=== PATIENT | female | born 1950 ===

== ENCOUNTER 2025-06-17 13:10 | Outpatient (AMB) | payer MEDICARE, MEDICAID, SELFPAY ==
--- NOTE | 2025-06-17 13:20 | MHC.OFFVIS ---
Vital Signs 06/17/25 13:23 Height 5 ft Weight 140 lb BMI 27.3 BP 143/67 H Blood Pressure Location Lt brachial Position Sitting Respiration 16 Pulse 75 Pulse Source Pulse Oximeter Pulse Oximetry (%) 97 Oxygen Delivery Method Room Air Intake Visit Reasons: Chronic Pain Dbas Required: No Accompanied by: Spouse Allergies ivp dye Adverse Reaction (Severe, Uncoded 06/17/25 13:24) Hives Medication List - Last Reconciled 06/17/25 by Kimberley Barkley LPN ascorbic acid (vitamin C) 1,000 mg PO BID atorvastatin (Lipitor) 20 mg PO BEDTIME cholecalciferol (vitamin D3) 25 mcg PO DAILY ferrous sulfate 325 mg PO DAILY morphine ER 15 mg PO Q8H oxycodone 10 mg PO TID HPI HPI Chronic Pain: Details: History of Present Illness The patient is a 74 year old female presenting for a pain management consultation regarding chronic pain. Her primary complaint is severe right hip pain, which began after a fall approximately one year ago. She underwent surgery for a hip fracture, but has experienced persistent pain for the entire year since, even though the hip has healed. The pain has reportedly worsened as the hip heals, which has been attributed to bone growth leading to a reduced range of motion. The patient is scheduled for another hip surgery, but is required to be off opioids for an unspecified period before the procedure can take place. She has a history of chronic opioid use (morphine) for pain, which she has now stopped, resulting in horrible pain and significantly decreased mobility. Her function has declined to the point of needing assistance with using the bathroom, and her ability to ambulate has been drastically reduced since discontinuing the medication. She reports feeling sick and weak after stopping the opioids. Her history is also significant for other chronic pain conditions, including chronic neck pain, spinal stenosis, and severe scoliosis with a visible arch in her back. She had a knee replacement about 20 years ago. The chronic opioid use predated her hip injury and was initially for her back pain. It is noted that the current hip issue may be exacerbating pain in her knee, ankle, back, and sacroiliac joint. Pain Description - Location: The patient's primary pain is in her right hip. - She also experiences generalized body pain, including chronic pain in her neck, back, knee, and ankle. - Onset: The right hip pain began after a fall about one year ago. - Quality and Severity: The pain is described as horrible and severe, rated at 10/10. - Exacerbating Factors: Pain is significantly worsened by the cessation of opioid medication and with activity such as walking. - Relieving Factors: Opioid medication helped her pain, providing some relief for all her pain areas. - Interference with Function: The pain severely limits her daily activities. - She now requires assistance to use the bathroom. - Her ambulation has drastically decreased; she can now only walk a short distance before needing to sit down, whereas previously she could walk much further. Physical Exam Results - Labs: A CMP test was mentioned, but no results were discussed. Pain Management: - Analgesia: The patient was on a stable dose of chronic opioids (morphine) for years, which provided partial relief. - She has stopped opioids in preparation for surgery and now reports horrible, severe pain. - Activities of Daily Living: Function is severely impaired due to pain. - She needs assistance with mobility and basic ADLs like using the bathroom. - Her ambulation has significantly declined since stopping her pain medication. - Adverse Effects: After stopping opioids, she reports feeling sick and weak. - Affect: The patient is significantly distressed by her severe, uncontrolled pain. - Aberrant Drug-Related Behaviors: There is no evidence of aberrant behavior. - She reports being on a stable dose for years without escalation, dislikes taking drugs, and denies craving them, stating she only craves relief from pain. COUNT INCLUDES THE [facility] Medical History (Updated 04/26/25 @ 14:17 by Kimberley Barkley LPN) Chronic thoracic back pain Chronic low back pain Hip pain Chronic UTI Urinary incontinence Amnesia Fibromyalgia CHF (congestive heart failure) Insomnia Anemia Hyperlipidemia Chronic pain syndrome Physical Exam Vital Signs: Last Vital Signs Pulse 75 06/17/25 13:23 Resp 16 06/17/25 13:23 BP 143/67 H 06/17/25 13:23 Pulse Ox 97 06/17/25 13:23 Oxygen Delivery Method Room Air 06/17/25 13:23 BMI result Body Mass Index 27.3 Assessment & Plan Assessment & Plan (1) Chronic thoracic back pain: Code(s): M54.6 - Pain in thoracic spine; G89.29 - Other chronic pain Category: Medical (2) Chronic low back pain: Code(s): M54.50 - Low back pain, unspecified; G89.29 - Other chronic pain Category: Medical (3) Hip pain: Code(s): M25.559 - Pain in unspecified hip Category: Medical Plan Plan Patient was informed and verbally consented to the use of an ambient scribe for clinic note documentation during this visit. 1. Chronic Right Hip Pain - The main priority is to proceed with the planned hip surgery, which is anticipated to provide substantial pain relief. - It is recommended that the patient discuss the pre-operative opioid cessation requirements with her surgeon. - The patient should return for re-evaluation of any residual pain after recovering from surgery. 2. Chronic Generalized Pain - Due to the diffuse nature of the patient's pain, targeted interventional procedures such as injections or ablations are not recommended at this time, as they are unlikely to improve her overall quality of life while the hip remains the primary issue. - It is hoped that surgical correction of the hip will improve her gait and alignment, which may secondarily reduce her back and knee pain. - No alternative potent analgesics are recommended in the interim, as it is unlikely that non-opioid medications or supplements will be effective for her degree of pain. - She should follow up after her hip surgery to address any remaining pain, at which time targeted treatments for more localized pain could be considered. Discussion Notes I explained that my practice focuses on interventional pain management techniques, including injections, nerve blocks, and nerve ablations. I advised that for a patient with diffuse and generalized pain affecting multiple body parts, attempting to treat one specific area with a procedure is unlikely to be successful in improving overall function or quality of life if other areas remain sources of severe pain. 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 We discussed that correcting the hip alignment and mechanics with surgery has the potential to also improve her secondary back and knee pain. I recommended she return for a follow-up visit after she has recovered from her hip surgery to reassess any remaining pain. At that point, if a specific area like her back is still a primary problem, we can consider targeted interventions such as cortisone or non-cortisone injections. When asked about options for pain control in the interim, I informed her that I do not believe any non-opioid or natural supplements would provide the strength of pain relief she needs. I suggested she clarify the specific protocols for preoperative opioid cessation with her surgeon. Patient Instructions - Your most important step right now is to move forward with your planned hip surgery. - This is expected to be the most helpful treatment for your severe hip pain. - Please speak with your surgeon's office about their specific rules for stopping pain medication before your operation. - After you have had the surgery and are recovering, please call our office to make a follow-up appointment to see me. - At your follow-up visit, we will see how you are doing and discuss if other treatments, like injections for back pain, might be helpful for any pain that remains. - For now, I am not recommending any new pain medications or procedures. We will address your pain again after your hip is fixed. Coding Level of Care Code New Pt Level 4 (15272) Diagnoses Chronic thoracic back pain M54.6; G89.29 Chronic low back pain M54.50; G89.29 Hip pain M25.559
[2025-06-17 13:23] VITALS: BP 143/67; PULSE 75; RESP 16; O2SAT 97; BMI 27.3
--- OUTSIDE RECORDS SUMMARY | 2025-06-17 16:33 | XMS_ITS | Encounter Summary ---
Author Organization [facility] Address [address], [place] [address] Care Team Providers Care Student Assistance Counselor Name Role Phone Carlita Jones Primary Care Provider [phone] Encounter Details Date Type Department Care Team (Late st Contact Info) Description 05/08/[address] [phone] Carlita Jones FNP [address] [place] [phone] Social History Tobacco Use Types Packs/Day Years Used Date Smoking Tobacco: Never Smokeless Tobacco: Never Alcohol Use Standard Drinks/Week Comments Never 0 (1 standard drink = 0.6 oz pur e alcohol) Housing Stability Answer Date Recorded What is your housing situation today? I have luzma ortiz 04/29/[address] you li ve. Do you have problems with any of the following? None of the above 04/29/2025 Food Insecurity Answer Date Recorded Within the past 12 months, y ou worried that your food would run out before you got money to buy more: Never True 04/29/2025 Within the past 12 months,th e food you bought just didn't last and you didn't have enough money to get more: Never True 08/2024 Transportation Answer Date Recorded In the past 12 months, has l ack of transportation kept you from medical appts, meetings, work or from getting things needed for daily living? No 04/29/2025 Utilities Answer Date Recorded In the past 12 months, has t he electric, gas, oil or water company threatened to shut off services in your home? No 04/29/2025 Depression Answer Date Recorded Patient Health Questionnaire-2 Score 0 04/29/2025 Internet Access Answer Date Recorded Internet Access Q1 Yes 04/29/2025 Internet Access Q2 Not on file 04/29/2025 Comments No Sex and Gender Information Value Date Recorded Sex Assigned at Female 10/12/2024 8:53 AM EDT Legal Sex Female 8:39 PM EST Gender Identity Female 05/07/2022 8:39 PM EST Sexual Orientation Don't know 05/07/2022 8: 39 PM EST documented as of this encounter Miscellaneous Notes * Telephone Encounter - Salomonria Ogden - 05/08/2025 9:53 AM EST Please advise on OT order request from pt. * Telephone Encounter - Zamzamcain Alegre - 05/08/2025 9:45 AM EST Shahid Pts called to request a new OT order be faxed to [facility] [phone] so pt can continue receiving Upper R extremity ulnar nerve compression OT. Pt is in pain and needs to continue OT. documented in this encounter Plan of Treatment Upcoming Encounters Date Type Department Care Team (Late st Contact Info) Description 06/18/2025 2:00 PM EST Office Visit [address] [phone] Carlita Jones FNP [address] [place] [phone] documented as of this encounter Visit Diagnoses Not on filedocumented in this encounter Care Teams Student Assistance Counselor Relationship Specialty Start Date End Date Carlita Jones FNP [address] [place] [phone] PCP - General Family Medicine 04/29/25 documented as of this encounter
--- OUTSIDE RECORDS SUMMARY | 2025-06-17 16:33 | XMS_ITS | Data Portability ---
Author Organization [facility], Main Office Address [address] [address] [address] [place] [address] Care Team Providers Care Tin Flopper Name Role Phone FARIBA ROMERO - 3RD FLOOR OTHER SONIA DANIEL Primary Care Provider [phone] Assessment Encounter Date Assessment Date Assessment LastModified by Organization Details LastModified Time 05/02/2024 05/02/2024 Labs 04/20- wbc 8.3, hb 8.6, hct 26.4, plt 444, na 137, k 3.5, chl 102, bicarb 24, bun 6, creat 0.48 Labs 04/23- wbc 8.1, hb 9.4, hct 28.2, plt 571, na 138, k 4.1, chl 99, co2 28, bun 13, creat 0.6 Labs 04/30- wbc 5.8, hb 8.7, hct 26.9, plt 463, na 139, k 4.6, chl 100, co2 29, bun 12, creat 0.6 [email or web address] Not available 05/02/2024 13:31:07 05/08/2024 05/08/2024 Labs 04/20- wbc 8.3, hb 8.6, hct 26.4, plt 444, na 137, k 3.5, chl 102, bicarb 24, bun 6, creat 0.48 Labs 04/23- wbc 8.1, hb 9.4, hct 28.2, plt 571, na 138, k 4.1, chl 99, co2 28, bun 13, creat 0.6 Labs 04/30- wbc 5.8, hb 8.7, hct 26.9, plt 463, na 139, k 4.6, chl 100, co2 29, bun 12, creat 0.6 Labs 05/07- wbc 5.3, hb 9.4, hct 29.1, plt 313, na 140, k 4.8, chl 101, co2 30, bun 13, creat 0.7 [email or web address] Not available 05/08/2024 13:47:58 05/15/2024 05/15/2024 Labs 04/20- wbc 8.3, hb 8.6, hct 26.4, plt 444, na 137, k 3.5, chl 102, bicarb 24, bun 6, creat 0.48 Labs 04/23- wbc 8.1, hb 9.4, hct 28.2, plt 571, na 138, k 4.1, chl 99, co2 28, bun 13, creat 0.6 Labs 04/30- wbc 5.8, hb 8.7, hct 26.9, plt 463, na 139, k 4.6, chl 100, co2 29, bun 12, creat 0.6 Labs 05/07- wbc 5.3, hb 9.4, hct 29.1, plt 313, na 140, k 4.8, chl 101, co2 30, bun 13, creat 0.7 Labs 05/14- urine >100K, culture pending [email or web address] Not available 05/15/2024 13:31:29 05/22/2024 05/22/2024 Labs 04/20- wbc 8.3, hb 8.6, hct 26.4, plt 444, na 137, k 3.5, chl 102, bicarb 24, bun 6, creat 0.48 Labs 04/23- wbc 8.1, hb 9.4, hct 28.2, plt 571, na 138, k 4.1, chl 99, co2 28, bun 13, creat 0.6 Labs 04/30- wbc 5.8, hb 8.7, hct 26.9, plt 463, na 139, k 4.6, chl 100, co2 29, bun 12, creat 0.6 Labs 05/07- wbc 5.3, hb 9.4, hct 29.1, plt 313, na 140, k 4.8, chl 101, co2 30, bun 13, creat 0.7 Labs 05/14- urine >100K E. coli [email or web address] Not available 05/22/2024 13:06:49 Plan of Treatment Reminders Order Date Submit Date Provider Last Modified By Organization Details Last Modified Time Details Appointments None record ed. Lab None record ed. Referral None record ed. Procedures None record ed. Surgeries None record ed. Imaging None record ed. Medication Orders None record ed. Patient TargetsNo targets recorded. Patient InstructionsNo instructions recorded. Reason for Referral None Reported. Problems Name Problem SNOMED Code Status Onset Date Resolution Date Notes Provider Name and Address Organization Details Recorded Time Fracture of neck of femur 9145122 Active 2023 [facility] S[facility]iqiC [address], [address], [place], [address], [facility] 4 13:14:15 Hypertensive disorder 00673716 Active 2023 Elisa Walton NP-C [address], [address], [place], [address], [facility] 4 13:14:20 Hyperlipidemia 93648285 Active 2023 [facility] [address], [address], [place], [address], [facility] 4 13:14:25 Abnormal gait 50039833 Active 2023 Elisa Walton NP-C [address], [address], [place], [address], [facility] 4 13:14:39 Anxiety 48332954 Active 2023 [facility] [address], [address], [place], [address], [facility] 4 13:14:44 Chronic pain 65000627 Active 2023 Elisa Walton NP-C [address], [address], [place], [address], [facility] 4 13:14:50 Fibromyalgia 173255510 Active 2023 Elisa Walton NP-C [address], [address], [place], [address], [facility] 4 13:14:59 Benign neoplasm of pituitary gland 64571077 Active 2023 [facility]iq[facility]C [address], [address], [place], [address], [facility] 4 13:15:09 Impaired cognition 836218988 Active 2023 [facility]ECT[facility] Siddiqi [address], [address], [place], [address], [facility] 4 13:15:25 Constipation 42043998 Active 2023 [facility] [address], [place], [address], [facility] 4 13:35:25 Increased frequency of urination 180332380 Active 2023 HECTOR Siddiqi [address], [place], [address], [facility] 4 14:09:09 Urinary tract infectious disease 84267824 Active 2023 [facility] [address], [place], [address], [facility] 4 13:31:38 Problem Notes None recorded. Medical Equipment None Reported. Allergies Allergen ID Allergen Name Allergen Category Reaction Reaction Severity Criticality Documentation Date Start Date Code Code System Note Provider Name and Address Organization Details Recorded Time 74599 Iodinated contrast media (substanc e) medicatio n Not available Not available Not available 04/23/2024 32810 2003 SNOMED [facility] [address], [address], [place], [address], [facility] 4 13:08:58 Medications Name Sig Start Date Stop Date Status Note LastModified by Organization Details LastModified Time morphine ER 30 mg tablet,exte nded release Take 1 tablet every 12 hours by oral route. 024 active Not Available Not Available Not Avai lable oxycodone 5 mg tablet 1 tab PO q 4 hours PRN pain 11/15/2 024 active Not Available Not Available Not Avai lable Vitals Date Recorded Heart rate Systolic And Diastolic Provider Name and Address Organization Details Last Updated DateTime 05/02/2024 68 /min 97/52 mm[Hg] Elisa WaltonHECTOR [address], [address], [place], [address], [facility] 05/02/2024 13:28:59 Date Recorded Heart rate Systolic And Diastolic Provider Name and Address Organization Details Last Updated DateTime 05/08/2024 72 /min 120/60 mm[Hg] Elisa WaltonJUSTUSC [address], [address], [place], [address], [facility] 05/08/2024 13:46:28 Date Recorded Heart rate Systolic And Diastolic Provider Name and Address Organization Details Last Updated DateTime 05/11/2024 64 /min 104/60 mm[Hg] Elisa StearnsJUSTUS headC [address], [address], [place], [address], [facility] 05/11/2024 14:08:46 Date Recorded Heart rate Systolic And Diastolic Provider Name and Address Organization Details Last Updated DateTime 05/15/2024 71 /min 117/71 mm[Hg] Elisa WaltonJUSTUSC [address], [address], [place], [address], [facility] 05/15/2024 13:28:36 Date Recorded Heart rate Systolic And Diastolic Provider Name and Address Organization Details Last Updated DateTime 05/22/2024 94 /min 97/63 mm[Hg] Elisa WaltonJUSTUSC [address], [address], [place], [address], [facility] 05/22/2024 13:05:00 Social History None recorded. Functional Status Question Answer Note LastModified by Organization D etails LastModified Time What is your level of alcohol consumption? None [email or web address] Information not available 04/23/2024 Mental Status None recorded. Family History Nothing Reported Notes:n/c Medical History No medical history recorded. Gynecological HistoryNo gynecological history recorded. Obstetrics History GPAL:G 0 P 0 0 0 0 Past Encounters Encounter ID Performer Location Encounter Start Date Encounter Closed Date Diagnosis/Indication Diagnosis SNOMED-CT Code Diagnosis ICD10 Code Diagnosis IMO Codes Diagnosis Note [id number] [facility] [address] [place] [address] 04/23/2024 13:09:10 04/24/2024 11:26:26 Fracture of neck of femur 2168064 S72.001E From a fall, s/p surgical repair 04/[address] Chen. Follow-up ortho. Follow recs. PT/OT. On home dose MS contin 30 mg BID. Will add oxycodone 5 mg q 4 hours PRN. Lovenox for DVT prophylaxi s. Hypertensive disorder 38 797450 I10 On losartan. Follow BP and labs. Chronic pain 60998113 G8 9.29 MS contin 30 mg BID. Will add oxycodone 5 mg q 4 hours PRN while she is here. Abnormal gait 79604153 R 26.9 PT/OT. Anxiety 34128004 F41.1 Off duloxetine per geriatrics . Monitor. Benign fiordaliza plasm of pituitary gland 27040751 D35.2 Added to hx. Fibromyalgia 800551820 M 79.7 Pain management as above. PT/OT. Hyperlipidemia 95388296 E78.49 On statin. Constipation 48042973 K5 9.09 Lactulose 30 mL BID until BM. Add miralax 17 GM PO daily. [id number] MARINA SEYMOUR MD [facility] [place] [address] 04/24/2024 14:12:21 04/25/2024 11:57:04 Fracture of neck of femur 9575904 S72.001E Due to mechanical fall, s/p surgical repair by Dr Chen. Continue analgesia, VTE prophy w sq lovenox, PT/OT to maximize function. Monitor. Hypertensive disorder 38 845893 I10 Contibnue losartan. Follow BP and labs. Abnormal gait 74582503 R 26.9 PT/OT. Anxiety 30644310 F41.1 Off duloxetine per geriatrics . Monitor. Fibromyalgia 389670125 M 79.7 Pain management as above. PT/OT. Hyperlipidemia 57647974 E78.49 Continue atorvastat in [id number] [facility] [address] [place] [address] 04/27/2024 12:34:25 04/30/2024 13:09:59 Fracture of neck of femur 0999339 S72.001E From a fall, s/p surgical repair 04/[address] Chen. Follow-up ortho. Follow recs. PT/OT. On home dose MS contin 30 mg BID, oxycodone 5 mg q 4 hours PRN. Lovenox for DVT prophylaxi s (end 05/12). Hypertensive disorder 38 132184 I10 On losartan. SBPs 90-130s. Follow BP and labs. Abnormal gait 68067104 R 26.9 PT/OT. Constipation 64247358 K5 9.09 On miralax 17 GM PO daily. [id number] [facility] [address] [place] [address] 04/30/2024 14:00:00 05/02/2024 17:17:13 Fracture of neck of femur 5885399 S72.001E From a fall, s/p surgical repair 04/[address] Chen. Follow-up ortho. Follow recs. PT/OT. On MS contin 30 mg BID, oxycodone 5 mg q 4 hours PRN. Lovenox for DVT prophylaxi s (end 05/12). Hypertensive disorder 38 417074 I10 On losartan. SBPs 90-140s, mostly >100. Follow BP and labs. Abnormal gait 36055436 R 26.9 Cont PT/OT. Constipation 75222052 K5 9.09 On miralax 17 GM PO daily. [id number] [facility]ECTOR Siddiq[facility] [address] [place] [address] 05/02/2024 13:28:35 05/04/2024 12:11:35 Fracture of neck of femur 8998231 S72.001E From a fall, s/p surgical repair 04/[address] Chen. Follow-up ortho. Follow recs. PT/OT. On MS contin 30 mg BID, oxycodone 5 mg q 4 hours PRN. Lovenox for DVT prophylaxi s (end 05/12). Hypertensive disorder 38 167266 I10 On losartan. SBPs 90-140s, mostly >100. Will d/c losartan. Follow BP and labs. Abnormal gait 29564968 R 26.9 Cont PT/OT. Constipation 73770348 K5 9.09 Improved on miralax 17 GM PO daily. [id number] [facility] [address] [facility] [place] [address] 05/08/2024 13:46:02 05/09/2024 10:39:19 Fracture of neck of femur 9525909 S72.001E From a fall, s/p surgical repair 04/[address] Chen. Follow-up ortho. Follow recs. PT/OT. On MS contin 30 mg BID, oxycodone 5 mg q 4 hours PRN. Lovenox for DVT prophylaxi s (end 05/12). Hypertensive disorder 38 530062 I10 SBPs 90-120s off losartan. Follow BP and labs. Abnormal gait 89708343 R 26.9 Cont PT/OT. Constipation 40047410 K5 9.09 On miralax 17 GM PO daily. [id number] [facility] [address] [facility] [facility] [place] [address] 05/11/2024 14:08:20 05/14/2024 13:03:29 Increased frequency of urination 457460814 R35.0 UA C&S. [id number] [facility] [address] [facility] [address] [place] [address] 05/15/2024 13:28:09 05/16/2024 08:57:47 Hypertensive disorder 33729098 I10 SBPs 100-120s off losartan. Follow BP and labs. Fracture o f neck of femur 4143087 S72.001E From a fall, s/p surgical repair 04/[address] Chen. Follow-up ortho. Follow recs. PT/OT. On MS contin 30 mg BID, oxycodone 5 mg q 4 hours PRN. Abnormal gait 09734241 R 26.9 Cont PT/OT. Constipation 86029084 K5 9.09 On miralax 17 GM PO daily. Chronic pain 41992884 G8 9.29 MS contin 30 mg BID; oxycodone 5 mg q 4 hours PRN while she is here. Anxiety 27851903 F41.1 Off duloxetine per geriatrics . Monitor. Benign fiordaliza plasm of pituitary gland 64812182 D35.2 Added to hx. Fibromyalgia 221940664 M 79.7 Pain management as above. PT/OT. Hyperlipidemia 67606500 E78.49 On statin. Urinary tr act infectious disease 22145562 N39.0 Culture pending. [id number] Elisa Walton, WIL[employer]EARCH ECOLOGIST-C [facility] [address] [place] [address] 05/22/2024 13:04:17 05/23/2024 11:03:11 Urinary tract infectious disease 23564835 N39.0 On bactrim 05/17-04/28 8. Follow-up outpatient . Hypertensive disorder 38 424577 I10 SBPs 90-130s off losartan. Follow-up outpatient . Fracture o f neck of femur 1516559 S72.001E From a fall, s/p surgical repair 04/[address] Chen. Follow-up ortho. On MS contin 30 mg BID, oxycodone 5 mg q 4 hours PRN. Follow-up outpatient . Constipation 63682860 K5 9.09 On miralax 17 GM PO daily. Follow-up outpatient . Chronic pain 15298335 G8 9.29 MS contin 30 mg BID; oxycodone 5 mg q 4 hours PRN. Anxiety 20331166 F41.1 Off duloxetine per geriatrics . Follow-up outpatient . Benign fiordaliza plasm of pituitary gland 28821019 D35.2 Added to hx. Follow-up outpatient . Fibromyalgia 123063071 M 79.7 Pain management as above. Follow-up outpatient . Hyperlipidemia 64978513 E78.49 On statin. Follow-up outpatient . Health Concerns Section Related Observation LastModified by Organization Detai ls LastModified Time None Recorded Concern Status LastModified by Organization Details LastModified Time None Recorded Advance Directives Directive None Recorded Payers Insurance Date Sequence Insurance Name Policy Number Policy Holcomb Covered Member ID Holcomb Member ID Guarantor Name 05/09/2024 2 [place] [facility] Mayte Rodriguez Mansi [id number] Mayte C[employer]ault 05/09/2024 1 [place] [facility] [employer] Mayte Kolb aruna [id number] Mayte Cuevaseault Notes Date Note Type Note Provider Name and Address Organization Details Recorded Time 05/02/2024 text/html 73-year-old female with PMH of HTN, HLD, gait abnormality, anxiety, chronic pain, fibromyalgia, Sellers's, benign pituitary gland tumor, recurrent UTI presented to acute care with weakness and a fall. Found to have right hip fracture, s/p surgical repair 04/[address] Chen. Pt had intermittent confusion. CT head negative. Complete course of abx for possible UTI. Lisette consulted- duloxetine discontinued. Patient seen today for acute rounding visit; f/u right hip fracture. Pt with intermittent hypotension. [facility]i [address] [facility], [address], [place], [address], [facility] 05/02/2024 13:32:01 05/08/2024 text/html 73-year-old female with PMH of HTN, HLD, gait abnormality, anxiety, chronic pain, fibromyalgia, Sellers's, benign pituitary gland tumor, recurrent UTI presented to acute care with weakness and a fall. Found to have right hip fracture, s/p surgical repair 04/[address] Chen. Pt had intermittent confusion. CT head negative. Complete course of abx for possible UTI. Lisette consulted- duloxetine discontinued. Patient seen today for acute rounding visit; f/u right hip fracture, hypotension. [facility] [address] [facility], [address], [place], [address], [facility] 05/08/2024 13:48:36 05/11/2024 text/html 73-year-old female with PMH of HTN, HLD, gait abnormality, anxiety, chronic pain, fibromyalgia, Sellers's, benign pituitary gland tumor, recurrent UTI presented to acute care with weakness and a fall. Found to have right hip fracture, s/p surgical repair 04/[address] Chen. Pt had intermittent confusion. CT head negative. Complete course of abx for possible UTI. Lisette consulted- duloxetine discontinued. Patient seen today for report of urinary frequency. [facility]ECT[facility]i [address] [facility], [address], [place], [address], [facility] [employer] 05/11/2024 14:10:01 05/15/2024 text/html 73-year-old female with PMH of HTN, HLD, gait abnormality, anxiety, chronic pain, fibromyalgia, Sellers's, benign pituitary gland tumor, recurrent UTI presented to acute care with weakness and a fall. Found to have right hip fracture, s/p surgical repair 04/[address] Chen. Pt had intermittent confusion. CT head negative. Complete course of abx for possible UTI. Lisette consulted- duloxetine discontinued. Patient seen today for acute rounding visit; f/u right hip fracture. [facility]i [address] [facility], [address], [place], [address], [facility] [employer] 05/15/2024 13:33:31 05/22/2024 text/html 73-year-old female with PMH of HTN, HLD, gait abnormality, anxiety, chronic pain, fibromyalgia, Sellers's, benign pituitary gland tumor, recurrent UTI presented to acute care with weakness and a fall. Found to have right hip fracture, s/p surgical repair 04/[address] Chen. Pt had intermittent confusion. CT head negative. Complete course of abx for possible UTI. Lisette consulted- duloxetine discontinued. Patient seen today for discharge. [facility] S[facility]i [address] [facility], [address], [place], [address], [facility] [employer] 05/22/2024 13:09:13 OBGyn Episode No OBEpisode recorded.
--- OUTSIDE RECORDS SUMMARY | 2025-06-17 16:33 | XMS_ITS | Clinical Summary ---
Author Organization [facility] Address [address] [place] [address] Care Team Providers Care Account Engineer Name Role Phone Carlita Jones NP Primary Care Provider Allergies Active Allergy Reactions Criticality Noted Date Comments Other Other (See Comments) 05/13/2010 Iodinated Contrast Media. Medications oxycodone (OXY-IR) 5 mg capsule 1 tablet 3 times daily 05/13/2010 Active FLEXERIL 10 mg tablet TAKE 1 TABLET AT BEDTIME. 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 Social History Tobacco Use Types Packs/Day Years Used Date Smoking Tobacco: Never Assessed Comments Unknown Sex and Gender Information Value Date Recorded Sex Assigned at Female 11/07/2024 11:31 AM EDT Legal Sex Female 7:33 PM EST Gender Identity Female 11/07/2024 11:31 AM EDT Sexual Orientation Not on file Last Filed Vital Signs Vital Sign Reading Time Taken Comments Blood Pressure 104/50 05/13/2010 2:31 PM EST Pulse - - Temperature - - Respiratory Rate - - Oxygen Saturation - - Inhaled Oxygen Concentration - - Weight 63.2 kg (139 lb 6.4 oz) 05/13/2010 2:31 P M EST Height 158 cm (5' 2.2 ) 05/13/2010 2:31 PM EST Body Mass Index 25.33 05/13/2010 2:31 PM EST Plan of Treatment Health Maintenance Due Date Last Done Comments Blood Pressure 1951 Lipid Panel 1951 Depression Screening 1963 Hepatitis C Screening 10/02/1969 DTaP,Tdap,and Td Vaccines (1 - Tdap) 10/02/1970 Breast Cancer Screening 1991 CT Colonography 10/02/1996 Colonoscopy 10/02/1996 Colorectal Cancer Screening 10/02/1996 FIT 10/02/1996 FOBT 10/02/1996 Multitarget Stool DNA (Cologuard) 10/02/1996 Sigmoidoscopy 10/02/1996 Pneumococcal Vaccine: 50+ Years (1 of 1 - PCV) 10/02/2001 Zoster Vaccine (1 of 2) 10/02/2001 Osteoporosis Screening 10/02/2016 Medicare Initial AWV [id number] 10/25/2017 COVID-19 Vaccine (2024-2 6 season) 2025 07/29/2021, 01/07/2021, 12/17/2020 Influenza Vaccine (#1) 2025 Meningococcal B Vaccines Aged Out No longer eligible based on patient's age to complete this topic Meningococcal Vaccines Aged Out No lo nger eligible based on patient's age to complete this topic Insurance [facility] MEDICARE [facility] MEDICARE Care Teams Account Engineer Relationship Specialty Start Date End Date Carlita Jones NP [address] [facility] [place] [address] PCP - General 11/07/24
--- OUTSIDE RECORDS SUMMARY | 2025-06-17 16:33 | XMS_ITS | Clinical Summary ---
Author Organization [employer] Address [address] [facility] 7t [place] [address] Care Team Providers Care Travel Specialist Name Role Phone Carlita Jones ZANDRA Primary Care Provider [phone] Allergies Active Allergy Reactions Criticality Noted Date Comments Iodinated Contrast Media Hives 10/16/2024 Allergy per Pt Medications ibuprofen 600 MG tablet Take 1 tablet by mouth 3 times daily. Active oxyCODONE (Roxicodone) 10 MG immediate release tablet Take 1 tablet by mouth 3 times daily. 10/17/19 25 Active aspirin 81 MG EC tablet Take 1 tablet by mouth Once per day. Active atorvastatin (Lipitor) 40 MG tablet Take 40 mg by mouth Once per day. Active gabapentin (Neurontin) 300 MG capsule TAKE 1 CAPSULE BY MOUTH TWICE A DAY DIRECTED FOR 30 DAYS Active ferrous sulfate 325 (65 Fe) MG tablet Take 1 tablet by mouth every other day. 03/26/20 25 Active Estradiol 0.01 % cream INSERT 1 APPLICATORFUL VAGINALLY EVERY DAY 01/15/20 25 Active nystatin (Mycostatin) 740896 UNIT/GM powder Apply topically 2 times daily. to affected area 01/11/20 25 Active Oyster Shell Calcium 500 MG tablet Take 1 tablet by mouth with breakfast and with evening meal. 01/11/20 25 Active ketoconazole (NIZOral) 2 % cream Apply topically. 10/19/19 25 Active Ascorbic Acid 500 MG capsule Take 500 mg by mouth. 05/07/20 25 026 Active methenamine hippurate (Hiprex) 1 g tablet Take 1 g by mouth. 05/07/20 25 026 Active morphine CR (MS Contin) 15 MG 12 hr tablet 05/08/20 25 Active docusate sodium (Colace) 100 MG capsuleIndicatio ns:Other constipation Take 1 capsule (100 mg) by mouth 2 times daily. 60 capsule 11 05/15/20 026 Active furosemide (Lasix) 20 MG tablet Take 1 tablet (20 mg) by mouth Once per day. 30 tablet 05/15/20 026 Active morphine CR (MS Contin) 15 MG 12 hr tabletIndication s:Chronic pain syndrome Take 1 tablet (15 mg) by mouth 3 times daily. Do not crush, chew, or split. 90 tablet 05/21/20 25 025 Active oxyCODONE (Roxicodone) 10 MG immediate release tabletIndication s:Chronic pain syndrome Take 1 tablet (10 mg) by mouth if needed in the morning, at noon, and at bedtime for severe pain. 90 tablet 05/21/20 25 025 Active nitrofurantoin, macrocrystal-mon ohydrate, (Macrobid) 100 MG capsuleIndicatio ns:Acute cystitis without hematuria Take 1 capsule (100 mg) by mouth 2 times daily for 7 days. 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 Hypertensive disorder 10/16/2024 Fibromyalgia 06/14/2024 Hypokalemia 02/15/2024 Edema of lower extremity 12/20/2023 Arthropathy 11/10/2023 Chronic depression 09/27/2023 Edema 04/14/2023 Benign essential hypertension 07/03/2019 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 Overview (10/16/2024): Pituitary Prolactinoma Anxiety disorder, unspecified 06/27/2000 Sellers's esophagus without dysplasia 06/27/2000 Fibromyositis 06/27/2000 Hyperlipidemia 06/27/2000 Encounters Date Type Department Care Team Description 06/15/2025 Refill [facility] [address] [facility] [address] [place] [address] Carlita Jones FNP 06/07/2025 Results Follow-Up [address] [address] Katt Duron FNP Urinalysis, Complete, with Reflex to Culture, Reflex Urine Culture 06/06/2025 Orders Only [facility] [address] [facility] [address] [place] [address] Katt Duron FNP 06/06/2025 Telephone [facility] [address] [facility] [address] [place] [address] Carlita Jones FNP 05/27/2025 2:00 PM EST Community Care Management [facility] [address] [facility] [address] [place] [address] Kristy Jason 05/21/2025 Orders Only [address] [address] Carlita Jones FNP Chronic pain syndrome (Primary Dx) 05/20/[address] [address] Carlita Jones FNP 05/15/2025 10:40 AM EST Office Visit [address] [address] Carlita Jones FNP Entrapment of right ulnar nerve (Primary Dx); Pain of right hip; Other constipation; Adhesive capsulitis of left shoulder 05/13/[address] [address] Brittany Grant LPN 05/13/[address] [address] Carlita Jones FNP 05/08/2025 Orders Only [address] [address] Carlita Jones FNP Lesion of right ulnar nerve (Primary Dx) 05/08/[address] [address] Carlita Jones FNP 05/08/[address] [address] Carlita Jones FNP 05/03/2025 Orders Only [address] [address] Katt Duron FNP Acute cystitis without hematuria (Primary Dx) 05/03/[address] [address] Carlita Jones FNP 05/02/[address] [address] Carlita Jones FNP 05/02/[address] [address] Carlita Jones FNP 04/29/2025 1:20 PM EST Office Visit [address] [address] Carlita Jones FNP Confusion (Primary Dx); Chronic pain syndrome; Pain of right hip from Last 3 Months Social History Tobacco Use Types Packs/Day Years Used Date Smoking Tobacco: Never Smokeless Tobacco: Never Tobacco Cessation:Counseling Given: Not Answered Alcohol Use Standard Drinks/Week Comments Never 0 [...] Don't know 05/07/2022 8: 39 PM EST Last Filed Vital Signs Vital Sign Reading Time Taken Comments Blood Pressure 131/75 05/15/2025 11:02 AM EST Pulse 84 05/15/2025 11:02 AM EST Temperature 36.9 C (98.4 F) 10/16/2024 4:40 PM EDT Respiratory Rate - - Oxygen Saturation 98% 05/15/2025 11:02 AM EST Inhaled Oxygen Concentration - - Weight 65.3 kg (144 lb) 04/29/2025 1:32 PM EST Height 162.6 cm (5' 4 ) 04/29/2025 1:32 PM EST Body Mass Index 24.72 04/29/2025 1:32 PM EST Plan of Treatment Upcoming Encounters Date Type Department Care Team (Late st Contact Info) Description 06/18/2025 2:00 PM EST Office Visit [address] [address] Carlita Jones FNP [address] [place] [address] Health Maintenance Due Date Last Done Comments CT Colonography 1950 Colonoscopy 1950 Colorectal Cancer Screening 1950 Dental X-Ray: Bitewings 1950 FIT DNA/Cologuard 1950 FIT 1950 FOBT 1950 Lipid Panel 1950 Sigmoidoscopy 1950 Hepatitis C Screening 10/02/1969 Pneumococcal Vaccine: 50+ Years (1 of 1 - PCV) 10/02/2001 RSV Patients and Patients Aged 60 years or older (1 - Risk 50-74 years 1-dose series) 10/02/2001 Zoster Vaccines (1 of 2) 10/02/2001 Dental Oral Exam 10/23/2019 04/22/2019 Dental Prophylaxis 10/24/2019 04/23/2019 Dental X-Ray: Full Mouth 04/24/2022 04/23/2019 Mammogram 07/28/2025 Postponed from 1991 (Patient Refused) Influenza Vaccine (#1) 2025 Postp oned from 02/25/2025 (Patient Refused) Alcohol/Substance Use Screening 04/29/2026 04/29/2025 COVID-19 Vaccine (4 - 2024-2 6 season) 2026 07/29/2021, 01/07/2021, 12/17/2020 Postponed from 02/25/2025 (Patient Refused) DTaP/Tdap/Td Vaccines (1 - Tdap) 04/29/2026 Postponed from 10/02 (Patient Refused) Depression Screening 04/29/2026 04/29/2025, 04/29/2025 SDOH Screening 04/29/2026 04/29/2025 Tobacco Screening 04/29/2026 04/29/2025 HIB Vaccines Aged Out No longer eligi ble based on patient's age to complete this topic HPV Vaccines Aged Out No longer eligi ble based on patient's age to complete this topic Hepatitis A Vaccines Aged Out No long er eligible based on patient's age to complete this topic Hepatitis B Vaccines Aged Out No long er eligible based on patient's age to complete this topic IPV Vaccines Aged Out No longer eligi ble based on patient's age to complete this topic Meningococcal B Vaccine Aged Out No l onger eligible based on patient's age to complete this topic Meningococcal Vaccine Aged Out No mansoor meredith eligible based on patient's age to complete this topic RSV under 20 months Aged Out No longe r eligible based on patient's age to complete this topic Rotavirus Vaccines Aged Out No longer eligible based on patient's age to complete this topic Procedures Procedure Name Priority Date/Time Associated Diagnosis Comments REFLEXIVE URINE CULTURE Routine 06/06/2025 4:46 PM EST URINALYSIS, COMPLETE, WITH REFLEX TO CULTURE Routine 06/06/2025 4:46 PM EST CULTURE, URINE, ROUTINE Routine 06/06/2025 4:46 PM EST AMB REFERRAL TO OCCUPATIONAL THERAPY Routine 06/06/2025 Entrapment of right ulnar nerve AMB REFERRAL TO PHYSICAL THERAPY Routine 05/22/2025 Pain of right hip REFLEXIVE URINE CULTURE Routine 04/29/2025 12:00 AM EST URINALYSIS, COMPLETE, WITH REFLEX TO CULTURE Routine 04/29/2025 12:00 AM EST Confusion CULTURE, URINE, ROUTINE Routine 04/29/2025 12:00 AM EST PROPHYLAXIS - ADULT Routine 04/23/2019 1 2:00 AM EDT PANORAMIC RADIOGRAPHIC IMAGE Routine 04/23/2019 12:00 AM EDT COMPREHENSIVE ORAL EVALUATION - NEW OR ESTABLISHED PATIENT Routine 04/22/2019 12:00 AM EDT from Last 3 Months or Most Recently Relevant to Health Maintenance Results * Reflex Urine Culture (06/06/2025 4:46 PM EST) Only the most recent of2 resultswithin the time period is included. REFLEXIVE URINE CULTURE [facility] [employer] [facility] Comment:CULTURE INDICATED - RESULTS TO FOLLOW 06/06/2025 4:46 PM EST 06/06/2025 4:46 PM EST Narrative [facility] - 06/08/2025 8:23 PM EST FASTING:UNKNOWN FASTING: UNKNOWN Katt DE PAZ HISTORICAL/NON ORDERABLE LABS Final Result [facility] [address], [place] [address] [email or web address] [place] [employer] [address] [place] [address] * (ABNORMAL) Urinalysis, Complete, with Reflex to Culture (06/06/2025 4:46 PM EST) Only the most recent of2 resultswithin the time period is included. Color YELLOW YELLOW [facility] [place] [facility] Appearance CLEAR CLEAR [facility] [place] [facility] Specific [place] 1.014 1.001 - 1.035 [facility] [place] [facility] pH, Urine 8.5(H) 5.0 - 8.0 [facility] [place] [facility] Glucose, Urine NEGATIVE NEGATIVE [facility] [place] [facility] Bilirubin,Uri ne NEGATIVE NEGATIVE [facility] [place] [facility] Ketones,Urine NEGATIVE NEGATIVE [facility] [place] [facility] Occult Blood,Urine NEGATIVE NEGATIVE [facility] [place] [facility] Protein,Urine NEGATIVE NEGATIVE [facility] [place] [facility] Nitrite POSITIVE(A) NEGATIVE [facility] [place] [facility] Leukocyte Esterase 3+(A) NEGATIVE [facility] [place] [facility] WBC, UA 20-40(A) < OR = 5 /HPF [email or web address] [place] [facility] RBC, UA 0-2 < OR = 2 /HPF [facility] [place] [facility] Squamous Epithelial Cells NONE SEEN < OR = 5 /HPF [email or web address] [place] [facility] Bacteria MANY(A) NONE SEEN /HPF [facility] [place] [facility] Hyaline Cast NONE SEEN NONE SEEN /LPF [facility] [place] [facility] Note [facility] [place] [facility] Comment: This urine was analyzed for the presence of WBC, RBC, bacteria, casts, and other formed elements. Only those elements seen were reported. 06/06/2025 4:46 PM EST 06/06/2025 4:46 PM EST Narrative [facility] - 06/08/2025 8:23 PM EST FASTING:UNKNOWN FASTING: UNKNOWN Katt [facility] URINE ORDERABLES Final Res ult [facility] [address], [place] [address] [email or web address] [place] [employer] [address] [place] [address] * (ABNORMAL) Culture, Urine, Routine (06/06/2025 4:46 PM EST) Only the most recent of2 resultswithin the time period is included. Culture, Urine, Routine SEE NOTE(A) [email or web address] [place] [facility] Comment: CULTURE, URINE, ROUTINE Micro Number: [id number] Test Status: Final Specimen Source: Urine Specimen Quality: Adequate Result: Greater than 100,000 CFU/mL of Escherichia coli E.coli INT ROSIO AMOX/CLAVULANATE S 8 AMP/SULBACTAM I 16 CEFAZOLIN I 4 CEFEPIME S <=0.12 CEFTAZIDIME S <=0.5 CEFTRIAXONE S <=0.25 CIPROFLOXACIN R >=4 GENTAMICIN R >=16 IMIPENEM S <=0.25 LEVOFLOXACIN R >=8 MEROPENEM S <=0.25 NITROFURANTOIN S <=16 PIP/TAZOBACTAM S <=4 TRIMETHOPRIM/SULFA R >=320 S = Susceptible I = Intermediate R = Resistant NS = Not susceptible SDD = Susceptible Dose Dependent * = Not Tested NR = Not Reported NN = See Therapy Comments 06/06/2025 4:46 PM EST 06/06/2025 4:46 PM EST Narrative [facility] - 06/08/2025 8:23 PM EST FASTING:UNKNOWN FASTING: UNKNOWN us Katt Duron [facility] MICROBIOLOGY - GENERAL ORD ERABLES Final Result Performing Organization Address City/State/[facility] Co de Phone Number [facility] [address], [place] [address] [email or web address] [address] [place] [address] * Referral to Occupational Therapy (06/06/2025) us Carlita Jones [facility] OUTPATIENT REFERRAL ORDERABLES F inal Result * Referral to Physical Therapy (05/22/2025) us Carlita Jones [facility] OUTPATIENT REFERRAL ORDERABLES F inal Result from Last 3 Months Insurance STANDARD MEDICARE DENTAL-[facility] MEDICAID STAND ADULT DENTAL - HSN FULL (MEDICAID) Care Teams Travel Specialist Relationship Specialty Start Date End Date Carlita Jones FNP [address] [place] [address] PCP - General Family Medicine 04/29/25
--- OUTSIDE RECORDS SUMMARY | 2025-06-17 16:33 | XMS_ITS | Clinical Summary ---
Author Organization [facility] Address [address] [place] [address] Phone Care Team Providers Care Chief Radiation Therapist Name Role Phone Carlita Jones NP Primary Care Provider Allergies Active Allergy Reactions Criticality Noted Date Comments Iodinated Contrast Media 07/03/2019 Medications morphine (MSIR) 30 MG tablet Take 30 mg by mouth every 4 (four) hours as needed for pain (specific location in comments). . Active omeprazole (PRILOSEC) 20 mg TbEC Take 20 mg by mouth daily before breakfast. Active furosemide (LASIX) 20 MG tablet Take 20 mg by mouth. Active ibuprofen (ADVIL,MOTRIN) 600 MG tablet Take 600 mg by mouth every 6 (six) hours as needed for pain (specific location in comments). Active acetaminophen (TYLENOL) 500 MG tablet Take 500 mg by mouth every 6 (six) hours as needed for pain (specific location in comments). Active Active Problems Problem Noted Date Diagnosed Date Varicose veins of bilateral lower extremities with other complications 07/03/2019 Assessment & Plan (07/03/2019 1:52 PM EST): This patient has evidence of venous insufficiency which is probably the cause here I have ordered her a venous reflux study and then will see her thereafter in follow-up Shortness of breath 07/03/2019 Assessment & Plan (07/03/2019 1:52 PM EST): We will check an echo as well to look at her right-sided chambers Benign essential hypertension 07/03/2019 Assessment & Plan (07/03/2019 1:51 PM EST): Well-controlled to the guidelines. Social History Tobacco Use Types Packs/Day Years Used Date Smoking Tobacco: Former Cigarettes Smokeless Tobacco: Never Tobacco Cessation:Counseling Given: Not Answered Alcohol Use Standard Drinks/Week Comments Not Currently 0 (1 standard drink = 0.6 oz pur e alcohol) Education Answer Date Recorded Are you interested in more education? Not on leidy e 10/31/2022 Are you concerned about learning? Not on file 10/31/2022 No 10/31/2022 No 10/31/2022 Digital Access Answer Date Recorded No 11/20/2022 No 11/20/2022 Reliable internet access at home? Not on file 11/20/2022 Device with a working camera? Not on file Intimate Partner Violence Answer Date R ecorded Are you denied basic needs s uch as food, clothing, or medical care? No 06/08/2024 In the past 12 months have y ou been in a relationship with a person who hurts, threatens, or tries to control you? No 06/08/2024 Are you denied basic needs s uch as food, clothing, or medical care? No 06/08/2024 In the past 12 months have y ou been in a relationship with a person who hurts, threatens, or tries to control you? No 06/08/2024 Comments Unknown Sex and Gender Information Value Date Recorded Sex Assigned at Not on file Legal Sex Female 6:23 PM EST Gender Identity Not on file Sexual Orientation Not on file Last Filed Vital Signs Vital Sign Reading Time Taken Comments Blood Pressure 100/66 06/08/2024 3:45 PM EST Pulse 73 06/08/2024 3:45 PM EST Temperature 36.7 C (98.1 F) 06/08/2024 3:45 PM EST Respiratory Rate 21 06/08/2024 3:45 PM EST Oxygen Saturation 100% 06/08/2024 3:45 PM EST Inhaled Oxygen Concentration - - Weight 46.7 kg (103 lb) 06/08/2024 11:35 AM EST Height 160 cm (5' 3 ) 06/08/2024 11:35 AM EST Body Mass Index 18.25 06/08/2024 11:35 AM EST Plan of Treatment Health Maintenance Due Date Last Done Comments Adult Td,Tdap Booster 1950 BLOOD PRESSURE 1950 LIPID PANEL 1951 DEPRESSION SCREENING 1963 SMOKING Hx and SMOKELESS TOBACCO SCREENING 10/02/1964 HEPATITIS C SCREENING 10/02/1969 MAMMOGRAM 1991 COLOGUARD 10/02/1996 COLONOSCOPY 10/02/1996 COLORECTAL CANCER SCREENING 10/02/1996 FIT TEST 10/02/1996 FOBT 10/02/1996 SIGMOIDOSCOPY 10/02/1996 VIRTUAL COLONOSCOPY 10/02/1996 PNEUMOCOCCAL VACCINES (50+ years) (1 of 1 - PCV) 10/02/2001 ZOSTER VACCINES (1 of 2) 10/02/2001 OSTEOPOROSIS SCREENING INITI AL (ONE-TIME) 10/02/2016 INFLUENZA VACCINE (#1) 2025 COVID-19 VACCINE (3 - 2024-2 6 season) 2025 01/07/2021, 12/17/2020 RSV VACCINE (1 - 1-dose 75+ series) 10/02/2026 HEPATITIS A VACCINES Aged Out No long er eligible based on patient's age to complete this topic HIB VACCINES Aged Out No longer eligi ble based on patient's age to complete this topic MENINGOCOCCAL VACCINES (ACWY) Aged Out No longer eligible based on patient's age to complete this topic MENINGOCOCCAL VACCINES (B) Aged Out N o longer eligible based on patient's age to complete this topic Medical Devices Not on file Insurance MEDICARE PART A & B [facility] MEDICARE PART A & B [facility] Member Subscriber Plan / Payer ([facility] 06/19/2019-Present) Name:Mayte Mccall Relation to Subscriber:Self Name:Mayte Mccall Payer ID:[id number] Group ID:Not on file Type:Medicaid Address: [address] [address] MEDICARE PART A & B [facility] MEDICARE PART A & B HEALTH MEDICARE PART A & B HEALTH MEDICARE PART A & B [address] [place], [place] [id number] MEDICARE PART A & B [place] MEDICARE PART A & B [facility] Care Teams Chief Radiation Therapist Relationship Specialty Start Date End Date Carlita Jones NP [address] [place] [phone] [email or web address] PCP - General Family Medicine 06/07/19 Additional Source Comments The information contained in this document represents components of the legal health record. It is not the complete legal health record.[facility]
--- OUTSIDE RECORDS SUMMARY | 2025-06-17 16:33 | XMS_ITS | Encounter Summary ---
Author Organization [employer] Address [address] [facility] [address], [place] [address] Care Team Providers Care Founding Partner Name Role Phone Carlita Jones Primary Care Provider [phone] Encounter Details Date Type Department Care Team (Late st Contact Info) Description 05/08/[address] [address] Carlita Jones FNP [address] [place] [address] Social History Tobacco Use Types Packs/Day [...] encounter Miscellaneous Notes * Telephone Encounter - Ira Rowe LPN - 05/08/2025 1:07 PM EST Called pt, and [facility], [facility] went [facility]. Pt needs new OT orders for treatment of upper extremity ulnar nerve compression to [facility]. Fax is [phone] * Telephone Encounter - Zamzam Alegre - 05/08/2025 9:41 AM EST Shahid Pts said he called the other day and left a message but didn't receive a call back. He said the pt is in pain without her Morphine and she hasn't had any OT which I have tasked a message regarding OT. documented in this encounter Plan of Treatment Upcoming Encounters Date Type Department Care Team (Late st Contact Info) Description 06/18/2025 2:00 PM EST Office Visit [address] [address] Carlita Jones FNP [address] [place] [address] documented as of this encounter Visit Diagnoses Not on filedocumented in this encounter Care Teams Founding Partner Relationship Specialty Start Date End Date Carlita Jones FNP [address] [place] [address] PCP - General Family Medicine 04/29/25 documented as of this encounter
--- OUTSIDE RECORDS SUMMARY | 2025-06-17 16:33 | XMS_ITS | Encounter Summary ---
Author Organization [employer] Address [address] [facility] 7t [place] [address] Care Team Providers Care Steam Shovel Operating Engineer Name Role Phone Carlita Jones ZANDRA Primary Care Provider [phone] Encounter Details Date Type Department Care Team (Late st Contact Info) Description 06/07/2025 Results Follow-Up [address] [address] Katt Duron FNP [address] [place] [address] Urinalysis, Complete, with Reflex to Culture, Reflex Urine Culture Social History Tobacco Use Types Packs/Day Years [...] PM EST documented as of this encounter Plan of Treatment Upcoming Encounters Date Type Department Care Team (Late st Contact Info) Description 06/18/2025 2:00 PM EST Office Visit [address] [address] Carlita Jones FNP [address] [place] [address] documented as of this encounter Visit Diagnoses Diagnosis Acute cystitis without hematuria- Primary documented in this encounter Care Teams Steam Shovel Operating Engineer Relationship Specialty Start Date End Date Carlita Jones FNP [address] [place] [address] PCP - General Family Medicine 04/29/25 documented as of this encounter
--- OUTSIDE RECORDS SUMMARY | 2025-06-17 16:33 | XMS_ITS | Encounter Summary ---
Author Organization [employer] Address [address] [facility] 7 [place] [address] Care Team Providers Care Rn Labor Delivery Name Role Phone Carlita Jones Primary Care Provider [phone] Reason for Visit * Reason Comments Med Refill Encounter Details Date Type Department Care Team (Late st Contact Info) Description 06/15/2025 Refill [facility] [address] [facility] [address] [place] [address] Carlita Jones FNP [address] [place] [address] Social History Tobacco Use Types Packs/Day Years [...] encounter Miscellaneous Notes * Telephone Encounter - Lalita Lawrence MA - 06/17/2025 9:04 AM EST PCP: ZANDRA Carpenter Last in-person office visit: 05/15/2025 ZANDRA Carpenter No results found for: BUN , CREATT , CREATININE , EGFR , HGBA1C , K , TSH Assessment: [x] Protocol passed [] Lab due [] Appointment due Plan: [x] Please refill for 30 days [] Lab [] BMP [] TSH [] A1C [] Appointment due: Future Appointments Date Time Provider Department Center 06/18/2025 2:00 PM ZANDRA Carpenter [facility] Comments: documented in this encounter Plan of Treatment Upcoming Encounters Date Type Department Care Team (Late st Contact Info) Description 06/18/2025 2:00 PM EST Office Visit [address] [address] Carlita Jones FNP [address] [place] [address] documented as of this encounter Visit Diagnoses Not on filedocumented in this encounter Care Teams Rn Labor Delivery Relationship Specialty Start Date End Date Carlita Jones FNP [address] [place] [address] PCP - General Family Medicine 04/29/25 documented as of this encounter
--- OUTSIDE RECORDS SUMMARY | 2025-06-17 16:33 | XMS_ITS | Data Portability ---
Author Organization [facility] [employer], [employer] Address [address] [place] [address] Assessment Encounter Date Assessment Date Assessment LastModified by Organization Details LastModified Time 01/31/2025 01/31/2025 Assessment - Chronic pain likely due to scoliosis and arthritis - Osteoporosis contributing to bone weakness - Potential endometrial cancer due to post-menopausal bleeding Plan - Prescribe duloxetine 30 mg once daily to address chronic pain and potentially improve mood. This medication is FDA-approved for fibromyalgia and chronic pain issues, with possible side effects including nausea, dry mouth, and bowel changes. - Prescribe oxycodone 5 mg three times daily to manage pain, with a plan to gradually reduce the dosage to minimize withdrawal symptoms. - Order MRI scans of the thoracic and lower back to provide updated imaging for further evaluation and potential interventions. - Order an ultrasound to assess the uterus and ovaries, given the concern for endometrial cancer due to post-menopausal bleeding. - Conduct fasting blood work to update and assess current health status. - Provide a referral to a bathhouse attendant for further evaluation and management of gynecological issues. - Perform a urine test in the office as part of the standard procedure for patients on controlled substances. - Require signing of a controlled substance contract to ensure compliance with medication management protocols. - Schedule a follow-up appointment in two weeks to evaluate the effectiveness of the new medication regimen and review test results. Prescription - Oxycodone 5 mg, 3 times a day (pt wants to stop cold turkey and I discussed risks of withdrawal - Duloxetine 30 mg, once a day; potential side effects include nausea, dry mouth, and bowel changes Appointments - Follow-up appointment in 2 weeks - Referral to a bathhouse attendant - MRI of thoracic and lower back - Ultrasound for uterine and ovarian evaluation - Fasting blood work before the next visit 50 minutes spent on date of service on chart review, direct time spent with patient, and documentation of clinical encounter. Not available 01/31/2025 12:44:35 03/06/2025 03/06/2025 Assessment - Anxiety, previously trialed duloxetine with intolerable side effects - Chronic pain, currently managed with oxycodone 10 mg three times daily; history of poor efficacy with lower doses and morphine; pain attributed to multiple sources including hip and back - Sleep disturbance, not recommended to use clonazepam due to risk with concurrent opioid use - Recurrent urinary tract infections, currently on antibiotics; recent urine culture positive for UTI; history of antibiotic resistance and persistent symptoms - Urinary incontinence, ongoing; discussion of PureWick device pending urology input - Spinal stenosis identified on MRI, described as arthritis in the lower spine; not causing cord compression or emergent neurological findings - Mild anemia noted on recent labs; history of significant anemia post-hip fracture and surgery in March 2024 - Hip pain/arthritis, pending surgical intervention in May Plan - Continue oxycodone 10 mg orally three times daily for chronic pain management. No dose reduction at this time due to inadequate pain control with lower dose. - Do not use clonazepam for sleep due to increased risk of respiratory depression and other serious side effects when combined with opioids. - Consider [id number] sleep aids such as melatonin or diphenhydramine (Benadryl) for insomnia. - Review and sign the controlled substance agreement with nursing staff to ensure safe and responsible use of prescribed opioids. - Referral placed to [facility] for evaluation and recommendations regarding alternative pain management strategies, including non-opioid modalities. - Message sent to urologist Sharifa Boone to address ongoing urinary tract issues and to request input regarding appropriateness and insurance coverage for a PureWick device for incontinence management. - Order laboratory studies to assess iron levels and monitor for iron deficiency or persistent anemia; blood draw to be performed during office visit. - Attempt urine testing in office as part of ongoing evaluation for urinary symptoms. - Plan to follow up in 4 to 6 weeks after pain management clinic consultation to review recommendations and adjust pain regimen as needed. Appointments - Referral to [facility] - Follow-up appointment in 4 to 6 weeks to review pain management recommendations 35 minutes spent on date of service on chart review, direct time spent with patient, and documentation of clinical encounter. Not available 03/06/2025 15:57:34 Plan of Treatment Reminders Order Date Submit Date Provider Last Modified By Organization Details Last Modified Time Details Appointments None recorded. Lab RPR (rapid plasma reagin), serum 2024 025 EDIE [facility], [address] [place], [address], 12:06:12 drugs of abuse panel, blood 2024 025 EDIE [facility], [address] [place], [address], 12:06:11 CBC w/ auto diff 2024 025 EDIE [facility], [address] [place], [address], 12:06:11 iron + TIBC + ferritin, serum 2024 025 EDIE [facility], [address], [place], [address], 5 12:06:10 cobalamin and folate panel, serum 2024 025 EDIE [facility], [address] [place], [address], 12:06:12 TSH + free T4, serum 2024 025 EDIE [facility], [address], [place], [address], 5 12:06:10 lipid panel, serum 2024 025 EDIE [facility], [address] [place], [address], 5 14:06:28 CMP, serum or plasma 2024 025 EDIE [facility], [address], [place], [address], 5 14:06:27 drug screen, urine 2024 025 EDIE [facility], [address], [place], [address], 5 14:06:26 CBC 2024 025 EDIE [facility], [address], [place], [address], 5 14:06:28 Referral pain management referral 2024 025 [facility], [address] [place] [address] Jose aFbian, [place], [place], [address], 09:25:[address] referral [address] [facility] Scheduling Dept, [address] [place] [address], [address], 10:22:06 Procedures None recorded. Surgeries None recorded. Imaging MRI, lumbar spine, w/o contrast [address] [facility] ([facility]), [address] [place] [address], [address], 5 10:22:45 US, pelvis, transabdom inal + transvagin al [address] [facility] Sched[facility], [address] [place] [address], [address], 5 09:27:51 MRI, thoracic spine, w/o contrast 2024 025 [facility] ([facility]), [address] [place] [address], [address], 5 10:25:07 Medication Orders oxycodone 5 mg tablet 2024 025 calli [facility] #[id number], [address] [place] [address], [address], 5 08:09:14 duloxetine 30 mg capsule,de layed release [id number], [address] [place], [address], 5 08:07:15 Patient TargetsNo targets recorded. Patient InstructionsNo instructions recorded. 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 Referral for Po stmenopausal bleeding Referring Physician: Julia Clifton, Internal Medicine, Encounter Date: 01/31/2025 Pain Management Referral for Chronic pain syndrome Referring Physician: Julia Clifton, Internal Medicine, Encounter Date: 03/06/2025 Results Created Date Observation Date Name Description Value Unit Range Abnormal Flag Note LastModifiedBy Organization Detail LastModifiedTime 02/20/2002/19/2025 TOXAS SURE SELEC T 13 (MW) summary report (summary) GRID OPERATOR Not Available [facility] ([facility]) [address] [place], [address], 02/20/2025 14:06:26 02/20/20 25 02/19/2025 TOXAS SURE SELEC T 13 () pdf GRID OPERATOR Not Available [facility] ([facility]) [address] [place], [address], 02/20/2025 14:06:26 02/20/20 25 02/20/2025 COMP. METAB OLIC PANEL (14) glucose 84 mg/dL 70-99 normal Not Available [facility] ([facility]) [address] [place], [address], 02/20/2025 14:06:27 02/20/20 25 02/20/2025 COMP. METAB OLIC PANEL (14) BUN 18 mg/dL 8-27 normal Not Available [facility] ([facility]) [address] [place], [address], 02/20/2025 14:06:27 02/20/20 25 02/20/2025 COMP. METAB OLIC PANEL (14) creatinine 1.05 mg/dL 0.57-1 .00 above high normal Not Available [facility] ([facility]) [address] [facility], [place], [address], 02/20/2025 14:06:27 02/20/20 25 02/20/2025 COMP. METAB OLIC PANEL (14) eGFR 56 mL/mi n/1.7 3 >59 below low normal Not Available [facility] ([facility]) [address] [facility], [place], [address], 02/20/2025 14:06:27 02/20/20 25 02/20/2025 COMP. METAB OLIC PANEL (14) BUN/creatini ne ratio 17 12-28 normal Not Available [facility] ([facility]) [address] [facility], [place], [address], 02/20/2025 14:06:27 02/20/20 25 02/20/2025 COMP. METAB OLIC PANEL (14) sodium 141 mmol/ L 134-14 4 normal Not Available [facility] ([facility]) [address] [facility], [place], [address], 02/20/2025 14:06:27 02/20/20 25 02/20/2025 COMP. METAB OLIC PANEL (14) potassium 5.4 mmol/ L 3.5-5. 2 above high normal Not Available [facility] ([facility]) [address] [facility], [place], [address], 02/20/2025 14:06:27 02/20/20 25 02/20/2025 COMP. METAB OLIC PANEL (14) chloride 103 mmol/ L 96-106 normal Not Available [facility] ([facility]) [address] [facility], [place], [address], 02/20/2025 14:06:27 02/20/20 25 02/20/2025 COMP. METAB OLIC PANEL (14) carbon dioxide, total 23 mmol/ L 20-29 normal Not Available [facility] ([facility]) [address] [facility] [place], [address], 02/20/2025 14:06:27 02/20/20 25 02/20/2025 COMP. METAB OLIC PANEL (14) calcium 9.4 mg/dL 8.7-10 .3 normal Not Available [facility] ([facility]) [address] [facility] [place], [address], 02/20/2025 14:06:27 02/20/20 25 02/20/2025 COMP. METAB OLIC PANEL (14) protein, total 6.4 g/dL 6.0-8. 5 normal Not Available [facility] ([facility]) [address] [facility] [place], [address], 02/20/2025 14:06:27 02/20/20 25 02/20/2025 COMP. METAB OLIC PANEL (14) albumin 4.1 g/dL 3.8-4. 8 normal Not Available [facility] ([facility]) [address] [facility] [place], [address], 02/20/2025 14:06:27 02/20/20 25 02/20/2025 COMP. METAB OLIC PANEL (14) globulin, total 2.3 g/dL 1.5-4. 5 Not Available [facility] ([facility]) [address] [facility] [place], [address], 02/20/2025 14:06:27 02/20/20 25 02/20/2025 COMP. METAB OLIC PANEL (14) bilirubin, total <0.2 mg/dL 0.0-1. 2 Not Available [facility] ([facility]) [address] [facility] [place], [address], 02/20/2025 14:06:27 02/20/20 25 02/20/2025 COMP. METAB OLIC PANEL (14) alkaline phosphatase 70 IU/L 44-121 normal Not Available [facility] ([facility]) [address] [facility] [place], [address], 02/20/2025 14:06:27 02/20/20 25 02/20/2025 COMP. METAB OLIC PANEL (14) AST (SGOT) 15 IU/L 0-40 normal Not Available [facility] ([facility]) [address] [facility], [place], [address], 02/20/2025 14:06:27 02/20/20 25 02/20/2025 COMP. METAB OLIC PANEL (14) ALT (SGPT) 14 IU/L 0-32 normal Not Available [facility] ([facility]) [address] [facility], [place], [address], 02/20/2025 14:06:27 02/20/20 25 02/20/2025 CBC, PLATE LET, NO DIFFE RENTI AL WBC 7.5 x10e3 /uL 3.4-10 .8 normal Not Available [facility] ([facility]) [address] [place], [address], 02/20/2025 14:06:28 02/20/20 25 02/20/2025 CBC, PLATE LET, NO DIFFE RENTI AL RBC 3.78 x10e6 /uL 3.77-5 .28 normal Not Available [facility] ([facility]) [address] [place], [address], 02/20/2025 14:06:28 02/20/20 25 02/20/2025 CBC, PLATE LET, NO DIFFE RENTI AL hemoglobin 11.0 g/dL 11.1-1 5.9 below low normal Not Available [facility] ([facility]) [address] [place], [address], 02/20/2025 14:06:28 02/20/20 25 02/20/2025 CBC, PLATE LET, NO DIFFE RENTI AL hematocrit 34.9 % 34.0-4 6.6 normal Not Available [facility] ([facility]) [address] [place], [address], 02/20/2025 14:06:28 02/20/2002/20/2025 CBC, PLATE LET, NO DIFFE RENTI AL MCV 92 fL 79-97 normal Not Available [facility] ([facility]) [address] [facility], [place], [address], 02/20/2025 14:06:28 02/20/2002/20/2025 CBC, PLATE LET, NO DIFFE RENTI AL MCH 29.1 pg 26.6-3 3.0 normal Not Available [facility] ([facility]) [address] [facility], [place], [address], 02/20/2025 14:06:28 02/20/2002/20/2025 CBC, PLATE LET, NO DIFFE RENTI AL MCHC 31.5 g/dL 31.5-3 5.7 normal Not Available [facility] ([facility]) [address] [place], [address], 02/20/2025 14:06:28 02/20/2002/20/2025 CBC, PLATE LET, NO DIFFE RENTI AL RDW 14.1 % 11.7-1 5.4 Not Available [facility] ([facility]) [address] [place], [address], 02/20/2025 14:06:28 02/20/2002/20/2025 CBC, PLATE LET, NO DIFFE RENTI AL platelets 318 x10e3 /uL 150-45 0 normal Not Available [facility] ([facility]) [address] [place], [address], 02/20/2025 14:06:28 02/20/20 25 02/20/2025 CBC, PLATE LET, NO DIFFE RENTI AL NRBC GRID OPERATOR Not Available [facility] ([facility]) [address] [facility] [place], [address], 02/20/2025 14:06:28 02/20/20 25 02/20/2025 LIPID PANEL cholesterol, total 191 mg/dL 100-19 9 normal Not Available [facility] ([facility]) [address] [facility] [place], [address], 02/20/2025 14:06:28 02/20/20 25 02/20/2025 LIPID PANEL triglyceride s 126 mg/dL 0-149 normal Not Available [facility] ([facility]) [address] [facility] [place], [address], 02/20/2025 14:06:28 02/20/20 25 02/20/2025 LIPID PANEL HDL cholesterol 71 mg/dL >39 normal Not Available [facility] ([facility]) [address] [place], [address], 02/20/2025 14:06:28 02/20/20 25 02/20/2025 LIPID PANEL VLDL cholesterol katlin 22 mg/dL 5-40 Not Available [facility] ([facility]) [address] [place], [address], 02/20/2025 14:06:28 02/20/20 25 02/20/2025 LIPID PANEL LDL chol calc ([facility]) 98 mg/dL 0-99 Not Available [facility] ([facility]) [address] [place], [address], 02/20/2025 14:06:28 02/20/20 25 02/20/2025 LIPID PANEL LDL calc comment: GRID OPERATOR Not Available [facility] ([facility]) [address] [place], [address], 02/20/2025 14:06:28 02/20/20 25 02/19/[address] PROBL EM request problem COMMEN T Test not perfo rmed. Patie nt was unabl e to provi de a self- colle cted speci men for the reque sted testi ng. The follo wing test( s) were not perfo rmed: TEST: 73123 [id number] ToxAS SURE Selec t 13 (MW) Not Available [facility] ([facility]) [address] [place], [address], 02/20/2025 14:06:29 03/06/2003/07/2025 FE+TI BC+FE R iron bind.cap.(TI BC) 324 ug/dL 250-45 0 normal Not Available [facility] ([facility]) [address] [place], [address], 03/21/2025 12:06:10 03/06/2003/07/2025 FE+TI BC+FE R UIBC 286 ug/dL 118-36 9 normal Not Available [facility] ([facility]) [address] [place], [address], 03/21/2025 12:06:10 03/06/2003/07/2025 FE+TI BC+FE R iron 38 ug/dL 27-139 normal Not Available [facility] ([facility]) [address] [place], [address], 03/21/2025 12:06:10 03/06/2003/07/2025 FE+TI BC+FE R iron saturation 12 % 15-55 below low normal Not Available [facility] ([facility]) [address] [place], [address], 03/21/2025 12:06:10 03/06/2003/07/2025 FE+TI BC+FE R ferritin 18 NG/mL 15-150 normal Not Available [facility] ([facility]) [address] [place], [address], 03/21/2025 12:06:10 03/06/2003/07/2025 TSH+F REE T4 TSH 1.670 uIU/m L 0.450- 4.500 normal Not Available [facility] ([facility]) [address] [place], [address], 03/21/2025 12:06:10 03/06/2003/07/2025 TSH+F REE T4 T4,free(dire ct) 1.23 NG/dL 0.82-1 .77 normal Not Available [facility] ([facility]) [address] [place], [address], 03/21/2025 12:06:10 03/06/2003/07/2025 CBC WITH DIFFE RENTI AL/PL ATELE T WBC 7.5 x10e3 /uL 3.4-10 .8 normal Not Available [facility] ([facility]) [address] [place], [address], 03/21/2025 12:06:11 03/06/2003/07/2025 CBC WITH DIFFE RENTI AL/PL ATELE T RBC 3.66 x10e6 /uL 3.77-5 .28 below low normal Not Available [facility] ([facility]) [address] [place], [address], 03/21/2025 12:06:11 03/06/2003/07/2025 CBC WITH DIFFE RENTI AL/PL ATELE T hemoglobin 10.9 g/dL 11.1-1 5.9 below low normal Not Available [facility] ([facility]) [address] [place], [address], 03/21/2025 12:06:11 03/06/2003/07/2025 CBC WITH DIFFE RENTI AL/PL ATELE T hematocrit 32.9 % 34.0-4 6.6 below low normal Not Available [facility] ([facility]) [address] [place], [address], 03/21/2025 12:06:11 03/06/2003/07/2025 CBC WITH DIFFE RENTI AL/PL ATELE T MCV 90 fL 79-97 normal Not Available [facility] ([facility]) [address] [place], [address], 03/21/2025 12:06:11 03/06/2003/07/2025 CBC WITH DIFFE RENTI AL/PL ATELE T MCH 29.8 pg 26.6-3 3.0 normal Not Available [facility] ([facility]) [address] [place], [address], 03/21/2025 12:06:11 03/06/2003/07/2025 CBC WITH DIFFE RENTI AL/PL ATELE T MCHC 33.1 g/dL 31.5-3 5.7 normal Not Available [facility] ([facility]) [address] [place], [address], 03/21/2025 12:06:11 03/06/2003/07/2025 CBC WITH DIFFE RENTI AL/PL ATELE T RDW 13.6 % 11.7-1 5.4 Not Available [facility] ([facility]) [address] [place], [address], 03/21/2025 12:06:11 03/06/2003/07/2025 CBC WITH DIFFE RENTI AL/PL ATELE T platelets 292 x10e3 /uL 150-45 0 normal Not Available [facility] ([facility]) [address] [place], [address], 03/21/2025 12:06:11 03/06/2003/07/2025 CBC WITH DIFFE RENTI AL/PL ATELE T neutrophils 52 % not estab. normal Not Available [facility] ([facility]) [address] [place], [address], 03/21/2025 12:06:11 03/06/2003/07/2025 CBC WITH DIFFE RENTI AL/PL ATELE T lymphs 31 % not estab. normal Not Available [facility] ([facility]) [address] [facility], [place], [address], 03/21/2025 12:06:11 03/06/20 25 03/07/2025 CBC WITH DIFFE RENTI AL/PL ATELE T monocytes 7 % not estab. normal Not Available [facility] ([facility]) [address] [facility], [place], [address], 03/21/2025 12:06:11 03/06/2003/07/2025 CBC WITH DIFFE RENTI AL/PL ATELE T eos 9 % not estab. normal Not Available [facility] ([facility]) [address] [facility], [place], [address], 03/21/2025 12:06:11 03/06/2003/07/2025 CBC WITH DIFFE RENTI AL/PL ATELE T basos 1 % not estab. normal Not Available [facility] ([facility]) [address] [facility], [place], [address], 03/21/2025 12:06:11 03/06/20 25 03/07/2025 CBC WITH DIFFE RENTI AL/PL ATELE T immature cells GRID OPERATOR Not Available [facility] ([facility]) [address] [place], [address], 03/21/2025 12:06:11 03/06/2003/07/2025 CBC WITH DIFFE RENTI AL/PL ATELE T neutrophils (absolute) 3.9 x10e3 /uL 1.4-7. 0 normal Not Available [facility] ([facility]) [address] [place], [address], 03/21/2025 12:06:11 03/06/20 25 03/07/2025 CBC WITH DIFFE RENTI AL/PL ATELE T lymphs (absolute) 2.3 x10e3 /uL 0.7-3. 1 normal Not Available [facility] ([facility]) [address] [facility], [place], [address], 03/21/2025 12:06:11 03/06/2003/07/2025 CBC WITH DIFFE RENTI AL/PL ATELE T monocytes(ab solute) 0.6 x10e3 /uL 0.1-0. 9 normal Not Available [facility] ([facility]) [address] [facility], [place], [address], 03/21/2025 12:06:11 03/06/2003/07/2025 CBC WITH DIFFE RENTI AL/PL ATELE T eos (absolute) 0.7 x10e3 /uL 0.0-0. 4 above high normal Not Available [facility] ([facility]) [address] [facility], [place], [address], 03/21/2025 12:06:11 03/06/2003/07/2025 CBC WITH DIFFE RENTI AL/PL ATELE T baso (absolute) 0.1 x10e3 /uL 0.0-0. 2 normal Not Available [facility] ([facility]) [address] [place], [address], 03/21/2025 12:06:11 03/06/2003/07/2025 CBC WITH DIFFE RENTI AL/PL ATELE T immature granulocytes 0 % not estab. Not Available [facility] ([facility]) [address] [place], [address], 03/21/2025 12:06:11 03/06/2003/07/2025 CBC WITH DIFFE RENTI AL/PL ATELE T immature grans (abs) 0.0 x10e3 /uL 0.0-0. 1 Not Available [facility] ([facility]) [address] [place], [address], 03/21/2025 12:06:11 03/06/2003/07/2025 CBC WITH DIFFE RENTI AL/PL ATELE T NRBC GRID OPERATOR Not Available [facility] ([facility]) [address] [facility], [place], [address], 03/21/2025 12:06:11 03/06/20 25 03/07/2025 CBC WITH DIFFE RENTI AL/PL ATELE T hematology comments: GRID OPERATOR Not Available [facility] ([facility]) [address] [facility], [place], [address], 03/21/2025 12:06:11 03/06/20 25 03/14/2025 DRUG SCREE N 10 W/CON F, WB amphetamines , ia Negati ve NG/mL cutoff :50 Not Available [facility] ([facility]) [address] [facility], [place], [address], 03/21/2025 12:06:11 03/06/20 25 03/14/2025 DRUG SCREE N 10 W/CON F, WB barbiturates , ia Negati ve ug/mL cutoff :0.1 Not Available [facility] ([facility]) [address] [place], [address], 03/21/2025 12:06:11 03/06/20 25 03/14/2025 DRUG SCREE N 10 W/CON F, WB benzodiazepi misbah, ia Negati ve NG/mL cutoff :20 Not Available [facility] ([facility]) [address] [place], [address], 03/21/2025 12:06:11 03/06/20 25 03/14/2025 DRUG SCREE N 10 W/CON F, WB cocaine/meta bolite,ia Negati ve NG/mL cutoff :25 Not Available [facility] ([facility]) [address] [place] [address], [address], 03/21/2025 12:06:11 03/06/20 25 03/14/2025 DRUG SCREE N 10 W/CON F, WB phencyclidin e, ia Negati ve NG/mL cutoff :8 Not Available [facility] ([facility]) [address] [place], [address], 03/21/2025 12:06:11 03/06/20 25 03/14/2025 DRUG SCREE N 10 W/CON F, WB THC (marijuana) mtb,ia Negati ve NG/mL cutoff :5 Not Available [facility] ([facility]) [address] [place], [address], 03/21/2025 12:06:11 03/06/2003/14/2025 DRUG SCREE N 10 W/CON F, WB opiates, ia Negati ve NG/mL cutoff :5 Not Available [facility] ([facility]) [address] [place], [address], 03/21/2025 12:06:11 03/06/2003/14/2025 DRUG SCREE N 10 W/CON F, WB oxycodones, ia ++POSI TIVE++ NG/mL cutoff :5 abnormal Not Available [facility] ([facility]) [address] [place], [address], 03/21/2025 12:06:11 03/06/20 25 03/14/2025 DRUG SCREE N 10 W/CON F, WB methadone, ia Negati ve NG/mL cutoff :25 Not Available [facility] ([facility]) [address] [place], [address], 03/21/2025 12:06:11 03/06/2003/14/2025 DRUG SCREE N 10 W/CON F, WB propoxyphene , ia Negati ve NG/mL cutoff :50 This test was devel domitila and its perfo rmanc e jaquan cteri stics deter mined by [facility]. It has not been clear ed or appro genia by the Food and Drug Admin istra tion. Not Available [facility] ([facility]) [address] [place], [address], 03/21/2025 12:06:11 03/06/2003/07/2025 VITAM IN B12 AND FOLAT E vitamin B12 608 pg/mL 232-12 45 normal Not Available [facility] ([facility]) [address] [facility], [place], [address], 03/21/2025 12:06:11 03/06/2003/07/2025 VITAM IN B12 AND FOLAT E folate (folic acid), serum 7.2 NG/mL >3.0 normal A serum folat e jackie ntrat ion of less than 3.1 ng/mL is consi dered to repre sent clini katlin defic iency . Not Available [facility] ([facility]) [address] [facility], [place], [address], 03/21/2025 12:06:11 03/06/2003/07/2025 RPR, RFX QN RPR/C ONFIR M TP RPR Non Reacti ve non reacti ve Not Available [facility] ([facility]) [address] [place], [address], 03/21/2025 12:06:12 03/06/2003/14/2025 OXYCO KAROLINA ,MS,W B/SP RFX oxycodones confirmation Positi ve Not Available [facility] ([facility]) [address] [place], [address], 03/21/2025 12:06:12 03/06/2003/14/2025 OXYCO KAROLINA ,MS,W B/SP RFX oxycodone 22.9 NG/mL Not Available [facility] ([facility]) [address] [place], [address], 03/21/2025 12:06:12 03/06/2003/14/2025 OXYCO KAROLINA ,MS,W B/SP RFX oxymorphone Negati ve NG/mL Expec eladio metab olism of oxyco done class drugs : [facility] el[facility] Metab olite s ----- ----- - ----- ----- ----- ----- Oxyco done: Oxymo rphon e Oxymo rphon e: None Confi rmati on thres hold: 1.0 ng/mL Not Available [facility] ([facility]) [address] [facility], [place], [address], 03/21/2025 12:06:12 01/26/20 25 12/25/2024 CT, lower leg, w/o contr ast No observ ation record ed. [email or web address] Not Available 06/2024 10:40:10 02/21/20 25 02/19/2025 MRI, lumba r spine , w/o contr ast No observ ation record ed. [email or web address] [facility] ([facility]) [address] [facility], [place], [address], 02/26/2025 22:18:47 03/12/2003/12/2025 US, pelvi s, compl ete US Pelvic Transa bdomin al Reason : N95.0 POSTME NOPAUS AUL BLEEDD ING; Clinic al Questi on(s): Other: COMPAR ROBERT: None TECHNI QUE: Transa bdomin al pelvic ultras ound with graysc claribel and color Dopple r analys is. Kang mckeon declin ed transv aginal examin ation. FINDIN GS: UTERUS : Size: 5.4 x 1.5 x 4.2 cm, volume 18.6 cc. Endome trial thickn ess: Not well seen, measur ing approx imatel y 0.2 cm. Morpho logy: Grossl y normal config uratio n and echote xture. RIGHT OVARY: Not seen. LEFT OVARY: Not seen. ADNEXA : Normal . No adnexa l masses or fluid collec tions. IMPRES ALLYSON: 1. Grossl y normal uterus and endome trium on transa bdomin al examin ation. Patien t declin ed transv aginal examin ation. 2. Neithe r ovary is seen. No adnexa l masses . WSN: [id number] Orderi ng Physic maya: Julia Clifton ed By: Lasha Torres MD ed Date/T gilda: 2:39 pm Review ed By: Lasha Torres MD Signed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
--- OUTSIDE RECORDS SUMMARY | 2025-06-17 16:34 | XMS_ITS | Encounter Summary ---
Author Organization [employer] Address [address] [place] [address] Care Team Providers Care Solution Designer Name Role Phone Carlita Jones Primary Care Provider [phone] Encounter Details Date Type Department Care Team (Late st Contact Info) Description 05/02/2025 Telephone [facility] [address] [place] [phone] Carlita Jones FNP [address] [place] [address] Social History Tobacco Use Types Packs/Day [...] Telephone Encounter - Ira Rowe LPN - 05/03/2025 1:06 PM EST Spoke to pt, advised of UTI and meds sent in along with instructions below. * Telephone Encounter - Rosalinda Solis - 05/03/2025 9:08 AM EST Patients is calling to ask for results of urine test he really wants her to start treatmentfor UTI [phone] he called yesterday also * Telephone Encounter - Ira Rowe LPN - 05/02/2025 3:05 PM EST Please review labs and advise. Pt is anxious. * Telephone Encounter - Rosalinda Solis - 05/02/2025 1:43 PM EST Patients is calling to ask for results of urine test he really wants her to start treatmentfor UTI [phone] documented in this encounter Plan of Treatment Upcoming Encounters Date Type Department Care Team (Late st Contact Info) Description 06/18/2025 2:00 PM EST Office Visit [address] [phone] Carlita Jones FNP [address] [place] [phone] documented as of this encounter Visit Diagnoses Not on filedocumented in this encounter Care Teams Solution Designer Relationship Specialty Start Date End Date Carlita Jones FNP [address] [place] [phone] PCP - General Family Medicine 04/29/25 documented as of this encounter
--- OUTSIDE RECORDS SUMMARY | 2025-06-17 16:34 | XMS_ITS | Data Portability ---
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 hard to lift arms without pain. but lately can get dish down from shelfoxyco done worked ok; morphine not working so well. fentanyl scares her and fears methadone Chronic pain 43477639 G8 9.29 Backache 444217439 M54.9 waiting on hipreplace ment as other hip hurting more now; waiting for new technology ; can't get back surg; arthritis tried ssri once and made her more emotional Hyperlipidemia 73356223 E78.5 Urinary incontinence 165 041881 R32 mirabbegro n not helping unless doesn't drinktolte rodine; ins wont cover without pawill try oxybutanin unless she has tried it Pain of hip region 57270 002 M25.559 Nausea 585405304 R11.0 [id number] Dariel Lu MD [facility] [address] [place] [address]85[address] 0 03/01/2024 10:17:22 03/01/2024 12:18:43 Diarrhea 40128249 R19.7 [id number] Dariel Lu MD [facility] [address] [place] [address] 0 03/20/2024 09:56:48 03/20/2024 10:56:24 Chronic back pain 617232347 G89.29 pain is getting worse; the good hip is now the bad hip and knees are now painful. both shoulders are painful and hard to lift arms without pain. but lately can get dish down from shelfoxyco done worked ok; morphine not working so well. fentanyl scares her and fears methadone Anxiety 00492715 F41.9 patient tells me using just at hs now; discussed taper down as could be adding to confusion; she will limit to two per day this month and try to decrease toward one a day. ; at biduses to sleepwe discussed decreasing clonazepam slowlyNOTE S LEFT LEG WEAKNESS AND FALLING Chronic pain 37137995 G8 9.29 Urinary incontinence 165 213848 R32 mirabbegro n not helping unless doesn't drinktolte rodine; ins wont cover without pawill try oxybutanin unless she has tried it Hyperlipidemia 00830273 E78.5 [id number] Dariel Lu MD [facility] [address] [place] [address] 0 06/14/2024 10:34:25 06/18/2024 10:14:04 Hyperlipidemia 60386740 E78.5 Fibromyalgia 407184124 M 79.7 Closed fra cture of hip 698139586 S72.001A Backache 978906678 M54.9 waiting on hipreplace ment as other hip hurting more now; waiting for new technology ; can't get back surg; arthritis tried ssri once and made her more emotional [id number] Dariel Lu MD [facility] [address] [place] [address] 08[address] 0 07/19/2024 11:21:42 07/31/2024 08:51:40 Pain of bilateral hip joints 3314144117 6056363 M25.552 needs pt/ot ordered by ortho Urinary incontinence 165 008155 R32 mirabbegro n not helping unless doesn't drinktolte rodine; ins wont cover without pawill try oxybutanin unless she has tried it Acute urin kae tract infection 316325910 N39.0 Backache 915558401 M54.9 waiting on hipreplace ment as other hip hurting more now; waiting for new technology ; can't get back surg; arthritis tried ssri once and made her more emotional [id number] Dariel Lu MD [facility] [address] [place] [address] 0 08/09/2024 11:40:01 08/22/2024 14:15:41 Urinary incontinence 905918303 R32 mirabbegro n not helping unless doesn't drinktolte rodine; ins wont cover without pawill try oxybutanin unless she has tried it Acute urin kae tract infection 530655267 N39.0 Backache 063629312 M54.9 waiting on hipreplace ment as other hip hurting more now; waiting for new technology ; can't get back surg; arthritis tried ssri once and made her more emotional Closed fra cture of hip 482817263 S72.001A Chronic pain 54658141 G8 9.29 Anxiety 30939672 F41.9 patient tells me using just at hs now; discussed taper down as could be adding to confusion; she will limit to two per day this month and try to decrease toward one a day. 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 possible tear Neck pain 00730855 M54.2 Numbness of hand 0828618 04 R20.0 R hand plast 2-3 digits tender Eruption 954122261 R21 Closed fra cture of hip 894472928 S72.001A Chronic pain 69940412 G8 9.29 [id number] Dariel Lu MD [address] [address] 09/19/2024 11:40:53 09/19/2024 16:39:44 Pain of right shoulder region 3296402814 M25.511 Hyperlipidemia 04173232 E78.5 Onychomycosis 639891444 B35.1 [id number] Dariel Lu MD [address] [address] 0 09/26/2024 10:16:46 09/26/2024 10:53:38 Urinary tract infectious disease 96669711 N39.0 [id number] Dariel Lu MD [address] [address] 0 10/17/2024 13:00:37 10/17/2024 15:31:42 Arthropathy 281609663 M12.9 Backache 263278154 M54.9 Pain of hip region 32274 002 M25.559 Impairment of balance 38 4700059 R26.89 Neck pain 73768710 M54.2 Pain of ri ght shoulder region 5842338149 M25.511 Recurrent falls 44266467 2 R29.6 [id number] Dariel Lu MD [address] [address] 0 11/15/2024 14:38:34 11/16/2024 10:02:03 Chronic pain 84696980 G89.29 Anxiety 91971057 F41.9 Edema 579139131 R60.9 Intertrigo 75002033 L30. 4 592 [id number] Dariel Lu MD [address] [address] 0 01/14/2025 14:49:57 01/15/2025 14:21:50 Chronic pain 33026466 G89.29 Anxiety 40461261 F41.9 Edema 520021047 R60.9 Intertrigo 07924677 L30. 4 592 Chronic pain syndrome 37 8051698 G89.4 54339 Arthropathy 040646614 M1 2.9 Backache 701628675 M54.9 Pain of hip region 01555 002 M25.559 Impairment of balance 38 5420905 R26.89 Neck pain 98489014 M54.2 Pain of ri ght shoulder region 4178496324 M25.511 Recurrent falls 31803261 2 R29.6 Health Concerns Section Related Observation LastModified by Organization Detai ls LastModified Time None Recorded Concern Status LastModified by Organization Details LastModified Time None Recorded Advance Directives Directive N: Payers Insurance Date Sequence Insurance Name Policy Number Policy Holcomb Covered Member ID Holcomb Member ID Guarantor Name 04/11/2024 1 [facility] (MEDICARE REPLACEMENT/A DVANTAGE - PPO) [id number] P Rodriguez-Tetr eault [id number] Mayte Rodriguez-Tetr eault 04/11/2024 1 [facility] - PLAN TYPE 3 (MEDICAID HMO) [id number] Mayte Rodriguez-Tetr eault [id number] Mayte Rodriguez-Tetr eault 04/11/2024 1 [place] Mayte Rodriguez-Tetr eault [id number] Mayte Rodriguez-Tetr eault 04/11/2024 2 [place] Mayte Rodriguez-Tetr eault [id number] Mayte Rodriguez-Tetr eault 04/11/2024 2 [place] Mayte Rodriguez-Tetr eault [id number] Mayte Rodriguez-Tetr eault 04/11/2024 1 [facility]HP (MEDICAID REPLACEMENT - HMO) [id number] Mayte Rodriguez-Tetr eault [id number] Mayte Rodriguez-Tetr eault 04/11/2024 [facility] [id number] Mayte Rodriguez-Tetr eault Mayte Rodriguez-Tetr eault 04/11/2024 1 [facility] [id number] Mayte Rodriguez Mansi [id number] Mayte Rodriguez-Tetr eault 04/11/2024 1 [place] [employer] P Rodriguez-Tetr eault [id number] Mayte Rodriguez-Tetr eault 01/14/2025 2 [place] [facility] Mayte Rodriguez-Tetr eault [id number] Mayte Rodriguez-Tetr eault 04/11/2024 1 [facility] (MEDICARE REPLACEMENT/A DVANTAGE - HMO) [id number] P Rodriguez-Tetr eault [id number] Mayte Rodriguez-Tetr eault 01/14/2025 1 [place] [employer] [employer] Mayte Rodriguez-Tetr eault [id number] Mayte Rodriguez-Tetr eault OBGyn Episode No OBEpisode recorded.
--- OUTSIDE RECORDS SUMMARY | 2025-06-17 16:34 | XMS_ITS | Encounter Summary ---
Author Organization [facility] Address [address] [facility] [address] [place] [address] Care Team Providers Care Turn Out Worker Name Role Phone López Booker DDS Primary Care Provider [phone] Provider, Not In System Primary Care Provider Un available Carlita Jones SPEEDBOAT DRIVER Primary Care Provider [phone] Encounter Details Date Type Department Care Team (Late st Contact Info) Description 10/17/2024 Telephone [facility] [address] [facility] [address] [place] [address] López Booker DDS [address] [place] [address] Social History Tobacco Use Types Packs/Day Years Used Date Smoking Tobacco: Never Assessed Comments Unknown Sex and Gender Information Value Date Recorded Sex Assigned at Female 10/12/2024 8:53 AM EDT Legal Sex Female 8:39 PM EST Gender Identity Female 05/07/2022 8:39 PM EST Sexual Orientation Don't know 05/07/2022 8: 39 PM EST documented as of this encounter Miscellaneous Notes * Telephone Encounter - Elissa Schwartz RN - 10/17/2024 3:13 PM EDT I called number provided and reported pt is not our practice. They will need to call [facility] * Telephone Encounter - Luiz Camejo - 10/17/2024 2:07 PM EDT Arleen from [facility] [employer] medicare insurance req a form the [facility] mandated drug safety time sensitive document need to done by 5-10 business days. Call back: [phone] documented in this encounter Plan of Treatment Upcoming Encounters Date Type Department Care Team (Late st Contact Info) Description 06/18/2025 2:00 PM EST Office Visit [address] [address] Carlita Jones FNP [address] [place] [address] documented as of this encounter Visit Diagnoses Not on filedocumented in this encounter Care Teams Turn Out Worker Relationship Specialty Start Date End Date López Booker DDS [address] [place] [address] PCP - General Dentist 04/23/22 10/21/24 Provider, Not In System PCP - General Family Medicine 10/22/24 04/28/25 Carlita Jones FNP [address] [place] [address] PCP - General Family Medicine 04/29/25 documented as of this encounter
--- OUTSIDE RECORDS SUMMARY | 2025-06-17 16:34 | XMS_ITS | Encounter Summary ---
Author Organization [facility] Address [address] [place] [address] Care Team Providers Care Bumper Straightener Name Role Phone López Booker DDS Primary Care Provider [phone] Provider, Not In System Primary Care Provider Un available Carlita Jones Primary Care Provider [phone] Encounter Details Date Type Department Care Team (Latest Contact Info) Description 04/23/2019 Abstract [facility] Dental, Provider, DDS Social History Tobacco Use Types Packs/Day Years [...] Description 06/18/2025 2:00 PM EST Office Visit [facility] [address] [place] [address] Carlita Jones FNP [address] [place] [address] documented as of this encounter Visit Diagnoses Not on filedocumented in this encounter Care Teams Bumper Straightener Relationship Specialty Start Date End Date López Booker DDS [facility]orm[facility] [address] PCP - General Dentist 04/23/22 10/21/24 Provider, Not In System PCP - General Family Medicine 10/22/24 04/28/25 Carlita Jones FNP [address] [place] [address] PCP - General Family Medicine 04/29/25 documented as of this encounter
--- OUTSIDE RECORDS SUMMARY | 2025-06-17 16:34 | XMS_ITS | Encounter Summary ---
Author Organization [facility] Address [address] [place] [address] Phone Care Team Providers Care Digital Community Manager Name Role Phone Carlita Jones NP Primary Care Provider [phone] Encounter Details Date Type Department Care Team (Late st Contact Info) Description 06/08/2024 Procedure Pass [facility], Ct Scan - [address] [phone] Social History Tobacco Use Types Packs/Day Years Used Date Smoking Tobacco: Former Cigarettes Smokeless Tobacco: Never Alcohol Use Standard Drinks/Week Comments Not Currently [...] on file Sexual Orientation Not on file documented as of this encounter Plan of Treatment Not on file documented as of this encounter Visit Diagnoses Not on filedocumented in this encounter Care Teams Digital Community Manager Relationship Specialty Start Date End Date Carlita Jones NP [address] [place] [phone] [email or web address] PCP - General Family Medicine 06/07/19 documented as of this encounter Additional Source Comments The information contained in this document represents components of the legal health record. It is not the complete legal health record.[facility]
--- OUTSIDE RECORDS SUMMARY | 2025-06-17 16:34 | XMS_ITS | Encounter Summary ---
Author Organization [email or web address] Address [address] [address] Care Team Providers Care Sap Business Objects Consultant Name Role Phone Provider, Not In System Primary Care Provider Un available Carlita Jones Primary Care Provider [phone] Reason for Visit * Reason Comments Med Refill Encounter Details Date Type Department Care Team (Late st Contact Info) Description 11/23/2024 Refill [facility] [address] [place] [phone] Aleks Valente LLD [address] [place] [address] Social History Tobacco Use Types Packs/Day Years [...] Description 06/18/2025 2:00 PM EST Office Visit [facility] [address] [place] [address] Carlita Jones FNP [address] [place], [place] [phone] documented as of this encounter Visit Diagnoses Not on filedocumented in this encounter Care Teams Sap Business Objects Consultant Relationship Specialty Start Date End Date Provider, Not In System PCP - General Family Medicine 10/22/24 04/28/25 Carlita Jones FNP [address] [place] [address] PCP - General Family Medicine 04/29/25 documented as of this encounter
== END 2025-06-17 13:56 | disposition home or self-care (01) ==
LOC: HO.PMC 13:10
PROVIDERS: PCP Nurse Practitioner Family; Visit Provider Internal Medicine
DX: M54.6 Pain in thoracic spine (principal); G89.29 Other chronic pain; M54.50 Low back pain, unspecified; M25.559 Pain in unspecified hip
CPT/HCPCS: 99204

== ENCOUNTER → 2025-06-17 13:10 | Outpatient (BNVA) | payer MEDICARE, MEDICAID, SELFPAY | PROVIDERS: PCP Nurse Practitioner Family; Visit Provider Internal Medicine | DX: M25.551 Pain in right hip (principal); M54.50 Low back pain, unspecified; G89.29 Other chronic pain | CPT/HCPCS: 99202 ==